=== PATIENT | male | born 1970 | race African-American/Black ===

== ENCOUNTER 2024-04-02 17:01 | Inpatient (IN) | payer OTHER ==
[~2024-04-02] VITALS: Ht 172.7 cm; Wt 104.3 kg
[2024-04-02] VITALS (7 sets, daily range): BP systolic 118–139; BP diastolic 65–82; TEMP 99; O2SAT 99–100
[2024-04-02 17:35] LABS: BASOPHILS # (AUTO) 0.1 K/UL (0.0-0.2); BASOPHILS % (AUTO) 0.4 % (0.0-2.0); EOSINOPHILS # (AUTO) 0.2 K/uL (0.0-0.7); EOSINOPHILS % (AUTO) 1.3 % (0.0-7.0); LYMPHOCYTES # (AUTO) 2.9 K/uL (0.8-4.8); LYMPHOCYTES % (AUTO) 20.6 % (20.5-51.5); MEAN CORPUSCULAR HEMOGLOBIN 28.9 uug (23.8-33.4); MEAN CORPUSCULAR HGB CONC 32 g/dL (32.5-36.3); MEAN CORPUSCULAR VOLUME 90.5 fL (73.0-96.2); MONOCYTES # (AUTO) 0.9 K/uL (0.1-1.30); MONOCYTES % (AUTO) 6.2 % (0.0-11.0); NEUTROPHILS # (AUTO) 10.2 K/uL (1.8-8.9); NEUTROPHILS % (AUTO) 71.5 % (38.5-71.5); PLATELET COUNT (AUTO) 273 K/uL (152-348); RED CELL DISTRIBUTION WIDTH 13.9 % (12.1-16.2); WHITE BLOOD COUNT (AUTO) 14.2 K/uL (3.6-10.2)
[2024-04-02 17:45] LABS: CALCIUM 7.8 mg/dL (8.5-10.1); CREATININE 1.3 mg/dL (0.6-1.3); POTASSIUM 3.9 mmol/L (3.5-5.1)
[2024-04-02 17:47] LABS: ETHANOL < 3 MG/DL (0-10)
[2024-04-02 17:48] LABS: RED BLOOD CELL COUNT(AUTO) 1.91 MIL/uL (4.06-5.63)
[2024-04-02] MEDS: IV NORMAL SALINE 500 ML BAG IV ONE (17:48)
[2024-04-02 17:49] LABS: ACETAMINOPHEN 4.7 ug/mL (10-30)
[2024-04-02 17:50] LABS: DIFFERENTIAL COMMENT 1; HEMATOCRIT 17.3 % (36.7-47.1); HEMOGLOBIN 5.5 g/dL (12.5-16.3)
[2024-04-02 17:58] LABS: ABG BASE EXCESS 3.8 mmol/L (-2.0-2.0); ABG HCO3 27.6 mmol/L (22.0-26.0); ABG PCO2 37.8 mmHg (35.0-48.0); ABG PH 7.482 (7.340-7.440); ABG PO2 70.9 mmHg (75.0-100.0); ABG SITE LEFT RADIAL; ABG TOTAL HEMOGLOBIN 5.8 G/dL (14.0-18.0); AaDO2 95.4 mmHg; COHb 0.5 % (0.0-3.9); MetHb 0.6 % (0.0-1.5); O2Hb 92.6 % (94.0-97.0)
[2024-04-02 18:00] LABS: ALBUMIN 2.1 g/dL (3.4-5.0); BILIRUBIN,TOTAL 0.1 mg/dL (0.2-1.0); TOTAL PROTEIN, SERUM 4.8 g/dL (6.4-8.2)
[2024-04-02] MEDS: PANTOPRAZOLE SODIUM IV 80 MG in IV DEXTROSE 5% 500 ML IV ONE (18:17)
[2024-04-02] MEDS: PANTOPRAZOLE SODIUM IV 80 MG in IV DEXTROSE 5% 100 ML IV ONE (18:18)
[2024-04-02 21:08] LABS: *BILIRUBIN,URIN NEGATIVE (NEGATIVE); *BLOOD, URINE NEGATIVE (NEGATIVE); *CLARITY,URINE CLEAR (CLEAR); *COLOR,URINE YELLOW (YELLOW); *KETONES,URINE 1+ (NEGATIVE); *PROTEIN,URINE NEGATIVE (NEGATIVE); *UROBILINOGEN,URINE 0.2 E.U./dl (NORMAL); LEUKOCYTE ESTERASE ,URINE NEGATIVE (NEGATIVE); NITRITE, URINE NEGATIVE (NEGATIVE)
[2024-04-02 21:25] LABS: UGLUCOSE 2+ (NEGATIVE)
[2024-04-02 21:34] LABS: *AMPHETAMINE, URINE NEGATIVE (NEGATIVE); *BARBITURATE, URINE NEGATIVE (NEGATIVE); *BENZODIAZEPINE, URINE NEGATIVE (NEGATIVE); *CANNABINOID, URINE NEGATIVE (NEGATIVE); *COCCAINE, URINE POSITIVE (NEGATIVE); *OPIATE, URINE NEGATIVE (NEGATIVE); *PHENCYCLIDINE SCREEN,URINE NEGATIVE (NEGATIVE); FENTANYL, URINE NEGATIVE (NEGATIVE)
[2024-04-02] MEDS ORDERED: ONDANSETRON 4 MG/2 ML VIAL IV PRN (23:45)
[2024-04-02] MEDS ORDERED: ACETAMINOPHEN 650 MG SUPP.RECT RC PRN (23:45)
[2024-04-03] VITALS (38 sets, daily range): BP systolic 97–133; BP diastolic 7–80; TEMP 98.7–99.9; O2SAT 95–100
[2024-04-03 00:07] LABS: IRON, SERUM 45 ug/dL (50-175)
[2024-04-03] MEDS: IV D5/ 0.9% NACL 1,000 ML IV PRN (06:07)
[2024-04-03 09:40] LABS: BASOPHILS # (AUTO) 0.1 K/UL (0.0-0.2); BASOPHILS % (AUTO) 0.7 % (0.0-2.0); EOSINOPHILS # (AUTO) 0.3 K/uL (0.0-0.7); EOSINOPHILS % (AUTO) 2.7 % (0.0-7.0); HEMATOCRIT 23.4 % (36.7-47.1); HEMOGLOBIN 7.7 g/dL (12.5-16.3); LYMPHOCYTES # (AUTO) 2.9 K/uL (0.8-4.8); LYMPHOCYTES % (AUTO) 24.9 % (20.5-51.5); MEAN CORPUSCULAR HEMOGLOBIN 29.7 uug (23.8-33.4); MEAN CORPUSCULAR HGB CONC 33 g/dL (32.5-36.3); MEAN CORPUSCULAR VOLUME 89.7 fL (73.0-96.2); MONOCYTES % (AUTO) 8.2 % (0.0-11.0); NEUTROPHILS # (AUTO) 7.4 K/uL (1.8-8.9); NEUTROPHILS % (AUTO) 63.5 % (38.5-71.5); PLATELET COUNT (AUTO) 206 K/uL (152-348); RED BLOOD CELL COUNT(AUTO) 2.61 MIL/uL (4.06-5.63); RED CELL DISTRIBUTION WIDTH 14.6 % (12.1-16.2); WHITE BLOOD COUNT (AUTO) 11.7 K/uL (3.6-10.2)
[2024-04-03 09:58] LABS: DIFFERENTIAL COMMENT 1
[2024-04-03 10:02] LABS: AMMONIA 27 umol/L (11-32)
[2024-04-03 10:05] LABS: ALANINE AMINOTRANSFERASE 18 U/L (16-63); ALBUMIN 2.2 g/dL (3.4-5.0); ALKALINE PHOSPHATASE 36 U/L (50-136); ASPARTATE AMINOTRANSFERASE 6 U/L (15-37); BILIRUBIN,TOTAL 0.4 mg/dL (0.2-1.0); CALCIUM 7.7 mg/dL (8.5-10.1); CARBON DIOXIDE 30 mmol/L (21-32); CHLORIDE 104 mmol/L (98-107); CHOLESTEROL 79 mg/dL (<200); CREATININE 1.3 mg/dL (0.6-1.3); GLUCOSE 273 mg/dL (74-106); HDL CHOLESTEROL 22 mg/dL (40-60); MAGNESIUM 1.9 mg/dL (1.8-2.4); PHOSPHOROUS 2.6 mg/dL (2.5-4.9); POTASSIUM 4.2 mmol/L (3.5-5.1); SODIUM SERUM 137 mmol/L (136-145); TOTAL PROTEIN, SERUM 4.9 g/dL (6.4-8.2); TRIGLYCERIDES 154 MG/DL (30-150); UREA NITROGEN, BLOOD 34 mg/dL (7-18)
[2024-04-03] MEDS: PANTOPRAZOLE SODIUM 40 MG VIAL IV SCH (10:22)
[2024-04-03 10:35] LABS: THYROID STIMULATING HORMONE 2.948 mIU/mL (0.358-3.740)
[2024-04-03] MEDS: LORAZEPAM 2 MG/1 ML VIAL IV PRN (21:00)
[2024-04-04] VITALS: BP 140/60; TEMP 98.9; O2SAT 99
[2024-04-04 04:15] VITALS: BP 129/73; TEMP 98.9; O2SAT 99
[2024-04-04] MEDS: MORPHINE SULFATE 2 MG/1 ML DISP.SYRIN IV PRN (04:39)
[2024-04-04 05:05] LABS: BASOPHILS # (AUTO) 0.1 K/UL (0.0-0.2); EOSINOPHILS # (AUTO) 0.4 K/uL (0.0-0.7); NEUTROPHILS # (AUTO) 7.5 K/uL (1.8-8.9)
[2024-04-04 05:07] LABS: EOSINOPHILS % (AUTO) 3.3 % (0.0-7.0); HEMATOCRIT 21.7 % (36.7-47.1); LYMPHOCYTES # (AUTO) 2.2 K/uL (0.8-4.8); LYMPHOCYTES % (AUTO) 19.9 % (20.5-51.5); MEAN CORPUSCULAR HEMOGLOBIN 30.4 uug (23.8-33.4); MEAN CORPUSCULAR HGB CONC 33 g/dL (32.5-36.3); MEAN CORPUSCULAR VOLUME 91.5 fL (73.0-96.2); MONOCYTES # (AUTO) 0.9 K/uL (0.1-1.30); MONOCYTES % (AUTO) 7.9 % (0.0-11.0); NEUTROPHILS % (AUTO) 67.9 % (38.5-71.5); PLATELET COUNT (AUTO) 222 K/uL (152-348); RED CELL DISTRIBUTION WIDTH 14.5 % (12.1-16.2)
[2024-04-04 05:25] LABS: CALCIUM 7.8 mg/dL (8.5-10.1); CREATININE 1.2 mg/dL (0.6-1.3); POTASSIUM 4.5 mmol/L (3.5-5.1)
[2024-04-04 06:03] LABS: DIFFERENTIAL COMMENT 1; HEMOGLOBIN 7.2 g/dL (12.5-16.3); RED BLOOD CELL COUNT(AUTO) 2.37 MIL/uL (4.06-5.63)
[2024-04-04 08:00] VITALS: BP 120/47; TEMP 98.6
[2024-04-04 12:00] VITALS: BP 110/63; TEMP 98.4
[2024-04-04 16:00] VITALS: BP 130/77; TEMP 98.2; O2SAT 97
[2024-04-04] MEDS ORDERED: EPINEPHRINE 1:10,000 1 MG/10 ML DISP.SYRIN ONE (18:01)
[2024-04-04] MEDS ORDERED: PROPOFOL 200 MG/20 ML BOTTLE ONE (19:00)
[2024-04-04 21:23] VITALS: BP 133/70; TEMP 99; O2SAT 96
[2024-04-05 00:40] VITALS: BP 139/81; TEMP 99.3; O2SAT 93
[2024-04-05] MEDS: ACETAMINOPHEN 325 MG TABLET PO PRN (06:39)
[2024-04-05 06:44] VITALS: BP 128/83; TEMP 99.9; O2SAT 98
[2024-04-05 07:38] VITALS: BP 107/51; TEMP 98.8; O2SAT 97
[2024-04-05 11:13] VITALS: BP 109/58; TEMP 98.4; O2SAT 99
[2024-04-05 15:26] VITALS: BP 115/69; TEMP 98.4; O2SAT 94
[2024-04-05 20:00] VITALS: BP 117/63; TEMP 98.5; O2SAT 94
[2024-04-06] VITALS (11 sets, daily range): BP systolic 119–145; BP diastolic 67–82; TEMP 97.6–99.4; O2SAT 96–100
[2024-04-06 06:57] LABS: CALCIUM 8.4 mg/dL (8.5-10.1); CREATININE 0.9 mg/dL (0.6-1.3); POTASSIUM 3.8 mmol/L (3.5-5.1)
[2024-04-06 06:58] LABS: BASOPHILS # (AUTO) 0.1 K/UL (0.0-0.2); LYMPHOCYTES # (AUTO) 2.1 K/uL (0.8-4.8); MONOCYTES # (AUTO) 0.9 K/uL (0.1-1.30); NEUTROPHILS # (AUTO) 8.3 K/uL (1.8-8.9); WHITE BLOOD COUNT (AUTO) 11.7 K/uL (3.6-10.2)
[2024-04-06 07:00] LABS: BASOPHILS % (AUTO) 0.4 % (0.0-2.0); EOSINOPHILS # (AUTO) 0.4 K/uL (0.0-0.7); EOSINOPHILS % (AUTO) 3.3 % (0.0-7.0); LYMPHOCYTES % (AUTO) 17.5 % (20.5-51.5); MEAN CORPUSCULAR HEMOGLOBIN 30.8 uug (23.8-33.4); MEAN CORPUSCULAR HGB CONC 34 g/dL (32.5-36.3); MONOCYTES % (AUTO) 7.9 % (0.0-11.0); NEUTROPHILS % (AUTO) 70.9 % (38.5-71.5); PLATELET COUNT (AUTO) 270 K/uL (152-348); RED CELL DISTRIBUTION WIDTH 14.6 % (12.1-16.2)
[2024-04-06 07:02] LABS: DIFFERENTIAL COMMENT 1; HEMATOCRIT 20.6 % (36.7-47.1); RED BLOOD CELL COUNT(AUTO) 2.29 MIL/uL (4.06-5.63)
[2024-04-06 11:22] LABS: HEMATOCRIT 20.6 % (36.7-47.1)
[2024-04-06 11:24] LABS: HEMOGLOBIN 6.6 g/dL (12.5-16.3)
[2024-04-06] MEDS: ALLOPURINOL 100 MG TABLET PO SCH (21:34)
[2024-04-07] MEDS: ZOLPIDEM 5 MG TABLET PO PRN (01:03)
[2024-04-07 01:08] LABS: HEMATOCRIT 22.5 % (36.7-47.1)
[2024-04-07 01:10] LABS: HEMOGLOBIN 7.4 g/dL (12.5-16.3)
[2024-04-07 05:00] VITALS: BP 166/95; TEMP 98.4; O2SAT 100
[2024-04-07] MEDS ORDERED: PANT40TA2 PO (10:06)
[2024-04-07] MEDS ORDERED: COLC0.6T67 PO (10:06)
[2024-04-07 11:39] VITALS: BP 164/85; TEMP 98; O2SAT 96
[2024-04-07 17:18] VITALS: O2SAT 97
[2024-04-09 07:09] LABS: *PEU ALPHA-2-GLOBULIN, UR 11.5 % (.); *PEU GAMMA GLOBULIN, UR 65.5 % (.); *PEU PROTEIN, TOTAL, UR 18.3 mg/dL (Not Estab.); *PEUALPHA-1-GLOBULIN, UR 2.4 % (.); *PEUBETA GLOBULIN, UR 14.7 % (.)
[2024-04-12 09:06] LABS: A/G RATIO 1.2 (0.7-1.7); ALBUMIN 2.4 g/dL (2.9-4.4); ALPHA-1-GLOBULIN 0.2 g/dL (0.0-0.4); ALPHA-2-GLOBULIN 0.6 g/dL (0.4-1.0); BETA GLOBULIN 0.7 g/dL (0.7-1.3); GAMMA GLOBULIN 0.5 g/dL (0.4-1.8); M-SPIKE Not Observed g/dL (Not Observed)
== END 2024-04-07 14:00 | disposition home or self-care (01) | DRG 812 ==
LOC: ER 17:02 → CCU 21:50 → TELE3 04-04 18:58 → MEDSURG3 04-06 08:50
PROVIDERS: ADMIT Internal Medicine; ATTEND Internal Medicine
PROC: 05HC33Z Insertion of Infusion Device into Left Basilic Vein, Percutaneous Approach (ICD-10-PCS; principal; 2024-04-02)
PROC: 30233N1 Transfusion of Nonautologous Red Blood Cells into Peripheral Vein, Percutaneous Approach (ICD-10-PCS; principal; 2024-04-02)
PROC: 0DB98ZX Excision of Duodenum, Via Natural or Artificial Opening Endoscopic, Diagnostic (ICD-10-PCS; 2024-04-04)
DX: T39.1X1A Poisoning by 4-Aminophenol derivatives, accidental (unintentional), initial encounter (principal); N17.0 Acute kidney failure with tubular necrosis; K26.4 Chronic or unspecified duodenal ulcer with hemorrhage; E43 Unspecified severe protein-calorie malnutrition; K29.71 Gastritis, unspecified, with bleeding; D64.9 Anemia, unspecified; D50.0 Iron deficiency anemia secondary to blood loss (chronic); E11.9 Type 2 diabetes mellitus without complications; B96.81 Helicobacter pylori [H. pylori] as the cause of diseases classified elsewhere; E66.9 Obesity, unspecified; F14.90 Cocaine use, unspecified, uncomplicated; G89.29 Other chronic pain; M10.9 Gout, unspecified; R55 Syncope and collapse; Y92.89 Other specified places as the place of occurrence of the external cause; K74.60 Unspecified cirrhosis of liver; Z68.35 Body mass index [BMI] 35.0-35.9, adult; I10 Essential (primary) hypertension
CPT/HCPCS: 36415; 36600; 71045; 76705; 82803; 83550; 83605; 83735; 84100; 84155; 84165; 84166; 84443; 84484; 84550; 85018; 85025; 85730; 86850; 86900; 86901; 86920; 87040; 88313-TC; 88342; 93005; 93307; A4606; A4663; C9113; G0378; G0480; J0171; J2060; J2270; J3490; J7040; J7042; J7060; J8499; P9016

== ENCOUNTER 2024-08-29 18:10 | Emergency (ER) | payer OTHER ==
[~2024-08-29] VITALS: Ht 172.7 cm; Wt 104.3 kg
[~2024-08-29 18:10] MED LIST: COLC0.6T67 PO; PANT40TA2 PO
[2024-08-29] MEDS ORDERED: ONDANSETRON 4 MG/2 ML VIAL ONE (19:00)
[2024-08-29] MEDS ORDERED: FAMOTIDINE. 20 MG/2 ML VIAL IV ONE (19:00)
[2024-08-29 19:07] LABS: BASOPHILS # (AUTO) 0.1 K/UL (0.0-0.2); BASOPHILS % (AUTO) 0.8 % (0.0-2.0); EOSINOPHILS # (AUTO) 0.1 K/uL (0.0-0.7); EOSINOPHILS % (AUTO) 1.3 % (0.0-7.0); HEMOGLOBIN 11.2 g/dL (12.5-16.3); LYMPHOCYTES # (AUTO) 1.9 K/uL (0.8-4.8); LYMPHOCYTES % (AUTO) 17.6 % (20.5-51.5); MEAN CORPUSCULAR HEMOGLOBIN 19.6 uug (23.8-33.4); MEAN CORPUSCULAR HGB CONC 29 g/dL (32.5-36.3); MEAN CORPUSCULAR VOLUME 66.9 fL (73.0-96.2); MONOCYTES # (AUTO) 0.8 K/uL (0.1-1.30); MONOCYTES % (AUTO) 6.8 % (0.0-11.0); NEUTROPHILS # (AUTO) 8.1 K/uL (1.8-8.9); NEUTROPHILS % (AUTO) 73.5 % (38.5-71.5); PLATELET COUNT (AUTO) 378 K/uL (152-348); RED BLOOD CELL COUNT(AUTO) 5.68 MIL/uL (4.06-5.63); RED CELL DISTRIBUTION WIDTH 18.5 % (12.1-16.2)
[2024-08-29 19:09] LABS: CALCIUM 9.2 mg/dL (8.5-10.1); CREATININE 1.3 mg/dL (0.6-1.3); POTASSIUM 3.7 mmol/L (3.5-5.1)
[2024-08-29] MEDS: ONDANSETRON 4 MG/2 ML VIAL IV ONE (19:09)
[2024-08-29] MEDS: FAMOTIDINE. 20 MG/2 ML VIAL IV ONE (19:09)
[2024-08-29] MEDS: IV NORMAL SALINE 500 ML BAG IV ONE (19:09)
[2024-08-29 19:23] LABS: ALBUMIN 3.4 g/dL (3.4-5.0); BILIRUBIN,DIRECT 0.1 mg/dL (0.0-0.2); BILIRUBIN,TOTAL 0.3 mg/dL (0.2-1.0); TOTAL PROTEIN, SERUM 7.3 g/dL (6.4-8.2)
[2024-08-29] MEDS ORDERED: FAMO-132 PO (19:49)
[2024-08-29 20:33] VITALS: BP 140/82; TEMP 98; O2SAT 98
== END 2024-08-29 20:34 | disposition home or self-care (01) ==
LOC: ER 18:10
DX: R10.13 Epigastric pain (principal); R11.2 Nausea with vomiting, unspecified; E66.01 Morbid (severe) obesity due to excess calories; K70.30 Alcoholic cirrhosis of liver without ascites; K29.70 Gastritis, unspecified, without bleeding; K27.9 Peptic ulcer, site unspecified, unspecified as acute or chronic, without hemorrhage or perforation; R03.0 Elevated blood-pressure reading, without diagnosis of hypertension; M10.9 Gout, unspecified; M19.90 Unspecified osteoarthritis, unspecified site; Z79.899 Other long term (current) drug therapy; Z87.19 Personal history of other diseases of the digestive system; Z68.35 Body mass index [BMI] 35.0-35.9, adult
CPT/HCPCS: 36415; 83690; 85025; 85730; A4606; A4663; J2405; J3490; J7040

== ENCOUNTER 2025-08-15 00:50 | Emergency (ER) | payer OTHER ==
[~2025-08-15] VITALS: Ht 172.7 cm; Wt 106.6 kg
[~2025-08-15 00:50] MED LIST changes: +FAMO-132 PO
[2025-08-15 00:52] VITALS: BP 151/107
[2025-08-15] MEDS ORDERED: PANT40TA2 PO (01:24)
[2025-08-15] MEDS ORDERED: PANTOPRAZOLE SODIUM 40 MG TABLET.DR PO ONE (01:26)
[2025-08-15] MEDS: PANTOPRAZOLE SODIUM 40 MG TABLET.DR PO ONE (01:30)
[2025-08-15 01:42] VITALS: BP 146/99
[2025-08-23] MEDS ORDERED: METR500T PO (12:16)
[2025-08-23] MEDS ORDERED: BISM262O28 PO (12:16)
[2025-08-23] MEDS ORDERED: PANT40TA49 PO (12:16)
[2025-08-23] MEDS ORDERED: SUCR1TAB31 PO (12:16)
[2025-08-23] MEDS ORDERED: TETR-57 PO (12:16)
== END 2025-08-15 01:43 | disposition home or self-care (01) ==
LOC: ER 01:05
DX: K26.9 Duodenal ulcer, unspecified as acute or chronic, without hemorrhage or perforation (principal); R10.11 Right upper quadrant pain; K70.30 Alcoholic cirrhosis of liver without ascites; I51.9 Heart disease, unspecified; E66.9 Obesity, unspecified; M10.00 Idiopathic gout, unspecified site; M19.90 Unspecified osteoarthritis, unspecified site; Z79.899 Other long term (current) drug therapy; Z87.11 Personal history of peptic ulcer disease; Z87.19 Personal history of other diseases of the digestive system; Z88.7 Allergy status to serum and vaccine; Z68.35 Body mass index [BMI] 35.0-35.9, adult
CPT/HCPCS: A4606; A4663

== ENCOUNTER 2025-08-21 05:54 | Inpatient (IN) | payer OTHER ==
[~2025-08-21] VITALS: Ht 172.7 cm; Wt 106.6 kg
[2025-08-21 06:41] LABS: PLATELET COUNT (AUTO) 327 K/uL (152-348); RED BLOOD CELL COUNT(AUTO) 2.90 MIL/uL (4.06-5.63); RED CELL DISTRIBUTION WIDTH 17.6 % (12.1-16.2); WHITE BLOOD COUNT (AUTO) 11.9 K/uL (3.6-10.2)
[2025-08-21 06:42] LABS: CREATININE 1.4 mg/dL (0.6-1.3); SODIUM SERUM 141.0 mmol/L (136-145); UREA NITROGEN, BLOOD 46.0 mg/dL (7-18)
[2025-08-21 06:48] LABS: ASPARTATE AMINOTRANSFERASE 11.0 U/L (15-37); TOTAL PROTEIN, SERUM 6.7 g/dL (6.4-8.2)
[2025-08-21] MEDS ORDERED: PANTOPRAZOLE SODIUM 40 MG VIAL ONE (06:58)
[2025-08-21] MEDS: PANTOPRAZOLE SODIUM 40 MG VIAL IV ONE (07:07)
[2025-08-21] MEDS: IV NS 1000 ML 1,000 ML IV ONE (07:07)
[2025-08-21] MEDS: SOD FERRIC GLUC COMPLX/SUCROSE 125 MG in IV NORMAL SALINE 100 ML IV SCH (08:45)
[2025-08-21 08:46] LABS: EOSINOPHILS % (MANUAL) 1 % (0-8); LYMPHOCYTES % (MANUAL) 28 % (20-40); MONOCYTES % (MANUAL) 5 % (2-10); NEUTROPHILS % (MANUAL) 66 % (42-75); PLATELET ESTIMATE ADEQUATE
[2025-08-21] MEDS ORDERED: LIDOCAINE-MPF 2% 5 ML VIAL ONE (09:00)
[2025-08-21] MEDS ORDERED: PROPOFOL 200 MG/20 ML BOTTLE ONE ×2 (09:00)
[2025-08-21 11:39] VITALS: BP 120/75; TEMP 98.4
[2025-08-21 11:58] VITALS: BP 131/75; TEMP 97.4
[2025-08-21 12:28] VITALS: BP 136/88; TEMP 97.9
[2025-08-21] MEDS ORDERED: REMEDY ESSENTIAL ZINC PASTE 113 GM TP PRN (12:45)
[2025-08-21] MEDS ORDERED: ONDANSETRON 4 MG/2 ML VIAL IV PRN (12:45)
[2025-08-21] MEDS ORDERED: ACETAMINOPHEN 325 MG TABLET PO PRN (12:45)
[2025-08-21 13:15] LABS: IRON, SERUM 22.0 ug/dL (50-175)
[2025-08-21 13:28] VITALS: BP 144/87; TEMP 98.4
[2025-08-21 15:49] VITALS: BP 130/90; TEMP 97.9
[2025-08-21] MEDS: SUCRALFATE 1 G TABLET PO SCH (16:59)
[2025-08-21] MEDS: PANTOPRAZOLE SODIUM 40 MG VIAL IV SCH (17:04)
[2025-08-21 19:15] VITALS: BP 138/88; TEMP 98.8; O2SAT 93
[2025-08-21] MEDS: ZOLPIDEM 5 MG TABLET PO ONE (21:22)
[2025-08-22] VITALS (11 sets, daily range): BP systolic 126–150; BP diastolic 76–98; TEMP 97.9–98.6; O2SAT 95–97
[2025-08-22] MEDS: IV LACTATED RINGERS SOLUTION 1,000 ML IV PRN (04:30)
[2025-08-22] MEDS: MORPHINE SULFATE 2 MG/1 ML DISP.SYRIN IV PRN (04:35)
[2025-08-22] MEDS ORDERED: TETRACA/BENZOCA/BUTAMBEN SPRAY 1 SPR CAN TP ONE (08:00)
[2025-08-22 08:38] LABS: PLATELET COUNT (AUTO) 253 K/uL (152-348); RED BLOOD CELL COUNT(AUTO) 3.12 MIL/uL (4.06-5.63); RED CELL DISTRIBUTION WIDTH 18.5 % (12.1-16.2); WHITE BLOOD COUNT (AUTO) 8.7 K/uL (3.6-10.2)
[2025-08-22 08:57] LABS: CREATININE 1.0 mg/dL (0.6-1.3); SODIUM SERUM 143.0 mmol/L (136-145); UREA NITROGEN, BLOOD 19.0 mg/dL (7-18)
[2025-08-22] MEDS: SOD FERRIC GLUC COMPLX/SUCROSE 125 MG in IV NORMAL SALINE 100 ML IV SCH (13:36)
[2025-08-22] MEDS ORDERED: DEXTROSE 50% 50 ML DISP.SYRIN IV PRN (15:30)
[2025-08-22] MEDS ORDERED: INSULIN REGULAR, HUMAN 1000 UNIT/10 ML VIAL SQ PRN (15:30)
[2025-08-22] MEDS: BLOOD SUGAR DIAGNOSTIC 1 EACH STRIP VI SCH (17:03)
[2025-08-22] MEDS: METRONIDAZOLE 500 MG TABLET PO SCH (17:11)
[2025-08-22] MEDS ORDERED: BISMUTH SUBSALICYLATE 262 MG/15 ML UDC PO SCH (18:00)
[2025-08-22] MEDS: DOXYCYCLINE HYCLATE 100 MG TABLET PO SCH (20:48)
[2025-08-22] MEDS: INSULIN GLARGINE,HUM 300 UNITS/3 ML CARTRIDGE SQ SCH (21:00)
[2025-08-22] MEDS: ZOLPIDEM 5 MG TABLET PO ONE (22:07)
[2025-08-23 05:11] VITALS: BP 163/96; TEMP 97.7; O2SAT 95
[2025-08-23] MEDS ORDERED: BISMUTH SUBSALICYLATE 262 MG/15 ML UDC PO PRN ×2 (06:35→06:45)
[2025-08-23] MEDS: PANTOPRAZOLE SODIUM 40 MG TABLET.DR PO SCH (07:23)
[2025-08-23 11:35] VITALS: BP 142/90; TEMP 97.9; O2SAT 96
[2025-08-23] MEDS: BISMUTH SUBSALICYLATE 262 MG/15 ML UDC PO SCH (11:51)
[2025-08-23] MEDS: COLCHICINE 0.6 MG TABLET PO ONE (11:56)
[2025-08-23] MEDS ORDERED: SUCR1TAB31 PO (12:16)
[2025-08-23] MEDS ORDERED: METR500T PO (12:16)
[2025-08-23] MEDS ORDERED: PANT40TA49 PO (12:16)
[2025-08-23] MEDS ORDERED: BISM262O28 PO (12:16)
[2025-08-23] MEDS ORDERED: TETR-57 PO (12:16)
[2025-08-23] MEDS ORDERED: DOXYCYCLINE HYCLATE 100 MG TABLET PO SCH (21:00)
[2025-08-23] MEDS ORDERED: INSULIN GLARGINE,HUM 300 UNITS/3 ML CARTRIDGE SQ SCH (21:00)
== END 2025-08-23 13:45 | disposition home or self-care (01) | DRG 241 ==
LOC: ER 06:02 → MEDSURG3 09:53
PROVIDERS: ADMIT Nurse Practitioner Acute Care; ATTEND Nurse Practitioner Acute Care
PROC: 30233N1 Transfusion of Nonautologous Red Blood Cells into Peripheral Vein, Percutaneous Approach (ICD-10-PCS; principal; 2025-08-21)
PROC: 0DB68ZX Excision of Stomach, Via Natural or Artificial Opening Endoscopic, Diagnostic (ICD-10-PCS; 2025-08-22)
DX: K25.4 Chronic or unspecified gastric ulcer with hemorrhage (principal); N17.0 Acute kidney failure with tubular necrosis; E88.09 Other disorders of plasma-protein metabolism, not elsewhere classified; B96.81 Helicobacter pylori [H. pylori] as the cause of diseases classified elsewhere; E11.65 Type 2 diabetes mellitus with hyperglycemia; D72.829 Elevated white blood cell count, unspecified; D62 Acute posthemorrhagic anemia; K29.70 Gastritis, unspecified, without bleeding; Z86.19 Personal history of other infectious and parasitic diseases; M15.9 Polyosteoarthritis, unspecified; G89.29 Other chronic pain; Z79.1 Long term (current) use of non-steroidal anti-inflammatories (NSAID); I51.7 Cardiomegaly
CPT/HCPCS: 36415; 70030-TC; 71045; 83550; 83735; 84100; 84443; 85018; 85025; 85730; 86850; 86900; 86901; 86920; 88313-TC; 88342; A4606; A4663; G0378; J1815; J2270; J2470; J2916; J3490; J7040; J7120; P9016